=== PATIENT | female | born 1965 | race Caucasian/White ===

== ENCOUNTER 2022-05-08 16:00 | Emergency (ER) | payer OTHER ==
[2022-05-08 17:23] VITALS: PULSE 84; TEMP 99
--- NOTE | 2022-05-08 19:35 | XR ---
EXAMINATION TYPE: XR chest 2V DATE OF EXAM: 05/08/2022 COMPARISON: NONE HISTORY: Headache and fever TECHNIQUE: 2 views FINDINGS: Heart and mediastinum are normal. There is mild blunting left costophrenic angle. There are no hilar masses. Bony thorax is intact. IMPRESSION: Pleural reaction at the left lung base. Normal heart. No heart failure.
[2022-05-08] MEDS ORDERED: ACETAMINOPHEN TAB 500 MG TAB PO STA (19:37)
--- NOTE | 2022-05-08 20:09 | ED ---
URI HPI - General Chief Complaint: Upper Respiratory Infection Stated Complaint: Covid+,cough Time Seen by Provider: 05/08/22 19:06 Source: patient Mode of arrival: EMS Limitations: no limitations - History of Present Illness Initial Comments: Patient is a 57-year-old female presenting from [facility] for antiviral treatment for Covid. Patient states she started having symptoms yesterday and tested positive today, states that [facility] sent here to receive treatment. Patient admits to headache and cough. She also admits to generalized body ac hes. She admits to sore throat and occasional fever. She denies any chest pain, shortness of breath, nausea, vomiting, diarrhea, hematochezia, melena, dysphasia, palpitations, weakness.. - Related Data Allergies Allergy/AdvReac Type Severity Reaction Status Date / Time bee venom protein (honey bee) Allergy Unknown Verified 05/08/22 17:23 ibuprofen Allergy Unknown Verified 05/08/22 17:23 Review of Systems ROS Statement: Those systems with pertinent positive or pertinent negative responses have been documented in the HPI. ROS Other: All systems not noted in ROS Statement are negative. Past Medical History Past Medical History: Asthma, COPD, Hypertension History of Any Multi-Drug Resistant Organisms: None Reported Additional Past Surgical History / Comment(s): neck fusion Past Psychological History: Anxiety, Depression Smoking Status: Current every day smoker Past Alcohol Use History: Abuse, Daily, Heavy Past Drug Use History: Prescription Drug Abuse General Exam Limitations: no limitations General appearance: alert, in no apparent distress Head exam: Present: atraumatic, normocephalic, normal inspection Eye exam: Present: normal appearance, EOMI. Absent: scleral icterus, periorbital swelling Neck exam: Present: normal inspection Respiratory exam: Present: normal lung sounds bilaterally. Absent: respiratory distress, wheezes, rales, rhonchi, stridor Cardiovascular Exam: Present: regular rate, normal rhythm, normal heart sounds. Absent: systolic murmur, diastolic murmur, rubs, gallop, clicks Neurological exam: Present: alert, oriented X3, CN II-XII intact Psychiatric exam: Present: normal affect, normal mood Skin exam: Present: warm, dry, intact, normal color. Absent: rash Course Vital Signs 05/08/22 05/08/22 17:19 19:37 Temperature 99 F Pulse Rate 84 84 Respiratory 18 20 Rate Blood Pressure 127/71 137/87 O2 Sat by Pulse 95 95 Oximetry Medical Decision Making - Medical Decision Making Patient is a 57-year-old female presenting for antiviral treatment for Covid. Patient is currently at [facility], tested positive today symptoms began yesterday. She admits to cough, body aches, fever, headache. On examination heart and lungs are clear to auscultation, remainder of exam is WNL. Patient is on multiple medications that are contraindicated when to impact fluid, we'll not be prescribing antiviral medication at this visit. Educated on supportive treatment and quarantine guidelines. Follow-up with PCP. Report back to ER with any new or worsening symptoms. Discussed return parameters and answered all questions. Patient conveyed verbal understanding and agreed to the plan. I discussed this case in detail with my attending Dr. Bateman. Disposition Clinical Impression: COVID Disposition: HOME SELF-CARE Condition: Good Instructions (If sedation given, give patient instructions): COVID-19 (Coronavirus Disease 2019) (ED), How to Recover from COVID-19 at Home (ED) Additional Instructions: Quarantine for 5 days, this is followed by 5 days of strict mask usage while in public. Take Tylenol as needed for fever and pain control. Report back to ER if any new or worsening symptoms. Stay well-hydrated and get plenty of rest. Follow-up with your PCP. You are not receiving the antiviral medication today as it is contraindicated with your other medications Is patient prescribed a controlled substance at d/c from ED?: No Referrals: Nonstaff,Physician [Primary Care Provider] - 1-2 days Time of Disposition: 20:08
[2022-05-08 20:23] VITALS: BP 137/87; RESP 20
== END 2022-05-08 20:50 | disposition home or self-care (01) ==
LOC: EC 16:00
DX: U07.1 COVID-19 (principal); J44.9 Chronic obstructive pulmonary disease, unspecified; I10 Essential (primary) hypertension; F17.200 Nicotine dependence, unspecified, uncomplicated; Z91.030 Bee allergy status; Z88.6 Allergy status to analgesic agent
CPT/HCPCS: 71046; 99284